=== PATIENT | female | born 1985 | race Caucasian/White ===

== ENCOUNTER 2024-09-22 07:49 | Inpatient (IN) ==
[2024-09-22] MEDS ORDERED: LIDOCAINE 1% LOCAL 20 ML VIAL INFIL PRN (07:59)
[2024-09-22] MEDS ORDERED: OXYTOCIN 30 UNITS/NSS 30 UNITS/500 ML BAG IV PRN (07:59)
[2024-09-22] MEDS ORDERED: ACETAMINOPHEN 325 MG TAB PO PRN (07:59)
[2024-09-22] MEDS ORDERED: CALCIUM CARBONATE 500 MG CHEWABLE TAB PO PRN (07:59)
--- NOTE | 2024-09-22 08:43 | History & Physical Report ---
Date of Service September 22, 2024 Assessment & Plan (1) 39 weeks gestation of : (2) Encounter for induction of labor: (3) Insulin controlled gestational diabetes mellitus (GDM) during : (4) Renal agenesis, , affecting care of mother, antepartum: Plan admit, iv, labs, fhts categ 1. will plan pit and arom when appropriate. check bsg now and q2hr in labor. Admission and Anticipated Discharge Date Admission Date: September 22, 2024 History of Present Illness Chief Complaint: planned induction Primary Care Provider: TIARA Humphrey 39yo at 39+wks eglynda presents to LD for planned induction for insulin requiring GDM. No rom, no vb. +FM. No ctx. PNC c/b 1. GDM on insulin 2. AMA 3. Left renal agenesis, Recommend f/u US to evaluate 4. 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 Allergies Allergy/AdvReac Type Severity Reaction Status Date / Time No Known Allergies Allergy Verified 09/22/24 08:27 Home Medications Medication Instructions Recorded Confirmed Type breast pump #1 ea 07/07/24 09/19/24 Rx acetone (urine) test (Ketone Urine #50 ea 08/04/24 09/19/24 Rx Test strips) blood sugar diagnostic (OneTouch #150 ea 08/04/24 09/19/24 Rx Verio test strips) blood-glucose meter (OneTouch #1 ea 08/04/24 09/19/24 Rx Verio Reflect Meter) lancets 33 gauge (OneTouch Delica #150 ea 08/04/24 09/19/24 Rx Plus Lancet) pen needle, diabetic 32 gauge x #50 ea 08/14/24 09/19/24 Rx 5/32" (BD Ultra-Fine Mansi Pen Needle) vits no.124-ferrous fum 1 tab PO DAILY 09/22/24 09/22/24 History 27 mg iron-folic acid 800 mcg tablet ( Vitamin) Patient History Medical History HPV (human papilloma virus) infection Chicken pox Spider veins Surgical History Hx of dilation and curettage [place] teeth extracted Family History Grandfather (Paternal) Diabetes Grandfather (Maternal) Myocardial infarction Mother No problems noted. 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 How many Children do You have: 0 Feels Safe at Home: Yes Childhood Exposure to Second-Hand Smoke: No Diet: regular caffeine: Yes (tea) Dental Care, Regularly: Yes Physical Activity Frequency: 5-6 Times per Week Seatbelt Use: always Sunscreen Use: Yes Review of Systems as per Subjective / HPI Physical Exam Constitutional: WD/WN, vitals as above Respiratory: normal respiratory effort, lungs clear to auscultation Cardiovascular: Rate/Rhythm: regular rate and regular rhythm Gastrointestinal (Abdomen): soft gravid nt efw 7-8# Musculoskeletal: no edema nontender calves Neurologic: grossly normal Psychiatric: A+Ox3, euthymic affect Genitourinary: Manual OB Exam: + cervical dilation 3 cm, + cervical effacement 50% and + station -2 OB Exam Monitor Tracing: + external FHT monitor used, + external uterine monitor used, + category I and + normal FHT variability Results & Data Vital Signs (Past 12 Hours) Vital Signs Pulse BP 09/22/24 08:06 98 H 114/69 Code Status & VTE Plan VTE Prophylaxis Plan VTE Prophylaxis will be ordered: No Coding Level of Care Code None Diagnoses 39 weeks gestation of Z3A.39 Encounter for induction of labor Z34.90 Insulin controlled gestational diabetes mellitus (GDM) during O24.414 Renal agenesis, , affecting care of mother, antepartum O35.EXX0
[2024-09-22 08:44] LABS: Hematocrit (blood only) 40.4 % (37.0-47.0); Hemoglobin 13.9 g/dl (12.0-16.0); Mean Corpuscular Hemoglobin 31.5 pg (25.0-34.0); Mean Corpuscular Hgb Conc 34.4 g/dL (32.0-36.0); Mean Corpuscular Volume 91.6 fL (80.0-100.0); Mean Platelet Volume 11.1 fL (9.4-12.4); Platelet Count 189 K/uL (130-400); RDW Coefficient of Variation 13.5 % (11.5-14.5); RDW Standard Deviation 45.5 fL (36.4-46.3); Red Blood Count 4.41 M/uL (4.20-5.40)
[2024-09-22] MEDS: SODIUM CHLORIDE 0.9% 1,000 ML IV SCH (09:00)
[2024-09-22] MEDS: OXYTOCIN 30 UNITS/NSS 30 UNITS/500 ML BAG IV PRN (09:12)
--- NOTE | 2024-09-22 15:53 | Labor Progress Brief Note ---
Date of Service September 22, 2024 Subjective Feeling mild cramping Assessment & Plan (1) 39 weeks gestation of : (2) Encounter for induction of labor: (3) Insulin controlled gestational diabetes mellitus (GDM) during : (4) Renal agenesis, , affecting care of mother, antepartum: Plan 39 yo at 39 3/7 wga presents for IOL for A2GDM VSS Fetus cat 1 Labor - pit at 12. Offered arom, reviewed risks and benefits w/ pt and her partner. She is concerned about arom and whether to do it now, or try to wait longer after more pitocin. Discussed usual timing of offering is when ctx appear consistent, does have good pattern but she doesn't feel much and cervix has had very small progression since this am so does not appear to be strong enough at this point. Discussed impact of arom, risk of pph with and without, also with and without use of pitocin, questions answered to the best of my ability. She would like to consider whether to arom and let me know A2GDM - q2-4, q1-2 in active GBS neg epidural prn Admission and Anticipated Discharge Date Admission Date: September 22, 2024 Physical Exam Genitourinary: Manual OB Exam: + cervical dilation (3-4), + cervical effacement 50% and + station -2 OB Exam Monitor Tracing: + external FHT monitor used, + external uterine monitor used (q3-4) and + category I (150/mod/+accel/-decel) Results & Data Vital Signs (Past 12 Hours) Vital Signs Temp Pulse Resp BP 09/22/24 12:47 80 09/22/24 12:47 118/70 09/22/24 10:06 89 09/22/24 10:06 112/70 09/22/24 09:18 98.8 F 16 09/22/24 08:06 98 H 114/69 Coding Level of Care Code None Diagnoses 39 weeks gestation of Z3A.39 Encounter for induction of labor Z34.90 Insulin controlled gestational diabetes mellitus (GDM) during O24.414 Renal agenesis, , affecting care of mother, antepartum O35.EXX0
--- NOTE | 2024-09-22 18:19 | Labor Progress Brief Note ---
Date of Service September 22, 2024 Subjective Ctx slightly worse Assessment & Plan (1) 39 weeks gestation of : (2) Encounter for induction of labor: (3) Insulin controlled gestational diabetes mellitus (GDM) during : (4) Renal agenesis, , affecting care of mother, antepartum: Plan 39 yo at 39 3/7 wga presents for IOL for A2GDM VSS Fetus cat 1 Labor - pit at 16, SVE unchanged. She would prefer to wait a little longer as she feels that ctx are worsening and wants to see if they cause change. She would like to discuss w/ partner about how she would like to proceed A2GDM - q2-4, q1-2 in active GBS neg epidural prn Admission and Anticipated Discharge Date Admission Date: September 22, 2024 Physical Exam Genitourinary: Manual OB Exam: + cervical dilation (3-4), + cervical effacement 50% and + station -2 OB Exam Monitor Tracing: + external FHT monitor used, + external uterine monitor used (q3-4) and + category I (145/mod/+accel/-decel) Results & Data Vital Signs (Past 12 Hours) Vital Signs Temp Pulse Resp BP 09/22/24 18:03 16 09/22/24 18:03 98.6 F 16 09/22/24 18:03 78 09/22/24 18:03 124/79 09/22/24 16:01 88 09/22/24 16:01 121/68 09/22/24 12:47 80 09/22/24 12:47 118/70 09/22/24 10:06 89 09/22/24 10:06 112/70 09/22/24 09:18 98.8 F 16 09/22/24 08:06 98 H 114/69 Coding Level of Care Code None Diagnoses 39 weeks gestation of Z3A.39 Encounter for induction of labor Z34.90 Insulin controlled gestational diabetes mellitus (GDM) during O24.414 Renal agenesis, , affecting care of mother, antepartum O35.EXX0
--- NOTE | 2024-09-22 21:23 | Labor Progress Brief Note ---
Date of Service September 22, 2024 Subjective Ctx unchanged from last check Assessment & Plan (1) 39 weeks gestation of : (2) Encounter for induction of labor: (3) Insulin controlled gestational diabetes mellitus (GDM) during : (4) Renal agenesis, , affecting care of mother, antepartum: Plan 39 yo at 39 3/7 wga presents for IOL for A2GDM VSS Fetus cat 1 Labor - pit at 20, sve unchanged. Discussed arom to help with progress as has not made change since I took over. They inquire about next steps if arom performed or not, what next steps available are. Discussed limited additional options at this point other than arom, continued pit to a max, reset. Discussed if arom, expected progress and intervention if indicated. Discussed these are all possibilities as it is impossible to know how her body will respond though. They requested time to discuss b/w themselves, requested stopping pit to shower and then would be agreeable to arom and pit restart. Discussed once that occurs, would not recommend additional showering. Discussed will need to monitor until pit is expected ti be out of her system before showering A2GDM - q2-4, q1-2 in active GBS neg epidural prn Admission and Anticipated Discharge Date Admission Date: September 22, 2024 Physical Exam Genitourinary: Manual OB Exam: + cervical dilation (3-4), + cervical effacement 50% and + station -2 OB Exam Monitor Tracing: + external FHT monitor used, + external uterine monitor used (q3-4) and + category I (135/mod/+accel/-decel) Results & Data Vital Signs (Past 12 Hours) Vital Signs Temp Pulse Resp BP 09/22/24 19:30 18 09/22/24 19:30 98.8 F 18 09/22/24 19:13 83 09/22/24 19:13 109/60 09/22/24 18:30 16 09/22/24 18:30 16 09/22/24 18:03 16 09/22/24 18:03 98.6 F 16 09/22/24 18:03 78 09/22/24 18:03 124/79 09/22/24 16:01 88 09/22/24 16:01 121/68 09/22/24 12:47 80 09/22/24 12:47 118/70 09/22/24 10:06 89 09/22/24 10:06 112 Coding Level of Care Code None Diagnoses 39 weeks gestation of Z3A.39 Encounter for induction of labor Z34.90 Insulin controlled gestational diabetes mellitus (GDM) during O24.414 Renal agenesis, , affecting care of mother, antepartum O35.EXX0
--- NOTE | 2024-09-23 01:14 | Labor Progress Brief Note ---
Date of Service September 23, 2024 Subjective pit restarted Assessment & Plan (1) 39 weeks gestation of : (2) Encounter for induction of labor: (3) Insulin controlled gestational diabetes mellitus (GDM) during : (4) Renal agenesis, , affecting care of mother, antepartum: Plan 39 yo at 39 3/7 wga presents for IOL for A2GDM VSS Fetus cat 1 Labor - pit restarted, currently at 4. Reviewed arom and pt agreeable, s/p arom. Continue pitocin A2GDM - q2-4, q1-2 in active GBS neg epidural prn Admission and Anticipated Discharge Date Admission Date: September 22, 2024 Physical Exam Genitourinary: Manual OB Exam: + cervical dilation (3-4), + cervical effacement 50%, + station -2 and + amniotic fluid (arom clear) OB Exam Monitor Tracing: + external FHT monitor used, + external uterine monitor used (q 6) and + category I (135/mod/+accel/-decel) Results & Data Vital Signs (Past 12 Hours) Vital Signs Temp Pulse Resp BP 09/23/24 01:00 18 09/23/24 01:00 98.6 F 18 09/22/24 23:21 94 H 09/22/24 23:21 117/73 09/22/24 19:30 18 09/22/24 19:30 98.8 F 18 09/22/24 19:13 83 09/22/24 19:13 109/60 09/22/24 18:30 16 09/22/24 18:30 16 09/22/24 18:03 16 09/22/24 18:03 98.6 F 16 09/22/24 18:03 78 09/22/24 18:03 124/79 09/22/24 16:01 88 09/22/24 16:01 121/68 Coding Level of Care Code None Diagnoses 39 weeks gestation of Z3A.39 Encounter for induction of labor Z34.90 Insulin controlled gestational diabetes mellitus (GDM) during O24.414 Renal agenesis, , affecting care of mother, antepartum O35.EXX0
[2024-09-23] MEDS ORDERED: ACETAMINOPHEN 500 MG TAB PO SCH (06:00)
--- NOTE | 2024-09-23 06:49 | Labor Progress Brief Note ---
Date of Service September 23, 2024 Subjective more painful, considering epidural Assessment & Plan (1) 39 weeks gestation of : (2) Encounter for induction of labor: (3) Insulin controlled gestational diabetes mellitus (GDM) during : (4) Renal agenesis, , affecting care of mother, antepartum: Plan 39 yo at 39 3/7 wga presents for IOL for A2GDM VSS Fetus cat 1 Labor - progress noted in effacement and station, she is considering epidural but would like to talk to anesthesia. Pit now at 10 A2GDM - q2-4, q1-2 in active GBS neg epidural prn Admission and Anticipated Discharge Date Admission Date: September 22, 2024 Physical Exam Genitourinary: Manual OB Exam: + cervical dilation 4 cm, + cervical effacement 70% and + station -1 OB Exam Monitor Tracing: + external FHT monitor used, + external uterine monitor used and + category I Results & Data Vital Signs (Past 12 Hours) Vital Signs Temp Pulse Resp BP 09/23/24 03:50 73 117/57 L 09/23/24 03:48 18 09/23/24 03:48 98.2 F 18 09/23/24 02:00 98.2 F 09/23/24 01:00 18 09/23/24 01:00 98.6 F 18 09/22/24 23:21 94 H 09/22/24 23:21 117/73 09/22/24 19:30 18 09/22/24 19:30 98.8 F 18 09/22/24 19:13 83 09/22/24 19:13 109/60 Coding Level of Care Code None Diagnoses 39 weeks gestation of Z3A.39 Encounter for induction of labor Z34.90 Insulin controlled gestational diabetes mellitus (GDM) during O24.414 Renal agenesis, , affecting care of mother, antepartum O35.EXX0
[2024-09-23] MEDS ORDERED: SODIUM CHLORIDE 0.9% PF INJ 10 ML VIAL EPI PRN (07:42)
[2024-09-23] MEDS ORDERED: fentaNYL citrate PF 100 MCG/2 ML VIAL EPI PRN (07:42)
[2024-09-23] MEDS ORDERED: ROPIVACAINE 0.5% PF 5 MG/ML 20 ML VIAL EPI PRN (07:42)
[2024-09-23] MEDS ORDERED: NALOXONE HCL 0.4 MG/1 ML VIAL/CARP IV PRN ×2 (07:42→23:06)
[2024-09-23] MEDS ORDERED: NALOXONE HCL 1 MG in SODIUM CHLORIDE 0.9% 1,000 ML IV PRN ×2 (07:42→23:06)
[2024-09-23] MEDS ORDERED: NALBUPHINE HCL INJ 10 MG/ML AMP IV PRN ×2 (07:42→23:06)
[2024-09-23] MEDS ORDERED: LIDOCAINE 2% MPF LOCAL 5 ML VIAL EPI PRN (07:42)
[2024-09-23] MEDS ORDERED: BUPIVACAINE 0.25% PF 30 ML VIAL EPI PRN (07:42)
[2024-09-23] MEDS ORDERED: diphenhydrAMINE 50 MG/ML VIAL IV PRN ×2 (07:42→23:06)
[2024-09-23] MEDS ORDERED: ePHEDrine sulfate 50 MG/ML AMP IV PRN ×2 (07:42→23:06)
--- NOTE | 2024-09-23 07:42 | Anesthesiology Consultation ---
Date of Service September 23, 2024 Assessment & Plan (1) Encounter for pre-operative examination: Chart Review Chart Review: Patient NOT seen in Pre Admission Testing and Acceptable Risk for Labor Epidural Consults Requested none History Height/Weight Height: 5 ft 1 in Weight: 81.647 kg Allergies Allergy/AdvReac Type Severity Reaction Status Date / Time No Known Allergies Allergy Verified 09/22/24 08:27 Medications Home Medications Medication Instructions Recorded Confirmed Last Taken breast pump #1 ea 07/07/24 09/19/24 Unknown acetone (urine) test (Ketone Urine #50 ea 08/04/24 09/19/24 Unknown Test strips) blood sugar diagnostic (OneTouch #150 ea 08/04/24 09/19/24 Unknown Verio test strips) blood-glucose meter (OneTouch #1 ea 08/04/24 09/19/24 Unknown Verio Reflect Meter) lancets 33 gauge (OneTouch Delica #150 ea 08/04/24 09/19/24 Unknown Plus Lancet) pen needle, diabetic 32 gauge x #50 ea 08/14/24 09/19/24 Unknown 32" (BD Ultra-Fine Mansi Pen Needle) vits no.124-ferrous fum 1 tab PO DAILY 09/22/24 09/22/24 09/22/24 27 mg iron-folic acid 800 mcg tablet ( Vitamin) Active Medications Generic Name Dose Route Start Last Admin Trade Name Freq PRN Reason Stop Dose Admin Oxytocin 30 units in 500 mls @ 10 mls/hr 09/22/24 08:07 09/23/24 05:45 Pitocin 30 Units/Nss IV 09/24/24 08:06 0.6 units/hr .Q24H PRN 10 mls/hr Labor Induction/Augmentation Titration Protocol 0.6 UNITS/HR Sodium Chloride 1,000 mls @ 50 mls/hr 09/22/24 10:00 09/23/24 02:55 Nss IV 09/23/24 09:59 50 mls/hr .Q20H HOMERO Administration Past Medical History Medical History HPV (human papilloma virus) infection Chicken pox Spider veins Past Family History Family History Grandfather (Paternal) Diabetes Grandfather (Maternal) Myocardial infarction Mother No problems noted. Father Hypertension Denies family history of Ovarian cancer Prostate cancer Breast cancer Colorectal cancer Past Surgical History Surgical History Hx of dilation and curettage [place] teeth extracted Social History Smoking Status: Never smoker Hx Alcohol Use: No Alcohol type: beer, wine and hard liquor Hx Substance Use: No substance use type: does not use Physical Exam Vital Signs Last Vital Signs Temp 98.2 F 09/23/24 03:48 Pulse 94 H 09/23/24 07:24 Resp 18 09/23/24 03:48 BP 119/66 09/23/24 07:24 Testing Laboratory Results 09/22/24 08:25 09/23/24 09/23/24 09/23/24 07:21 05:11 01:46 POC Glucose 111 H 107 H 124 H 09/22/24 09/22/24 23:30 20:42 POC Glucose 107 H 93
[2024-09-23] MEDS: BUPIVACAINE 0.25% PF 30 ML VIAL ONE (08:17)
[2024-09-23] MEDS: LIDOCAINE 2%/EPINEPHRINE 1:200,000 20 ML PF ONE (08:17)
[2024-09-23] MEDS: fentANYL 2 MCG/ML BUPIVacaine 0.125%-NSS 100ML BAG ONE (08:17)
[2024-09-23] MEDS: SODIUM CHLORIDE 0.9% PF INJ 10 ML VIAL ONE (08:18)
[2024-09-23] MEDS: fentaNYL citrate PF 100 MCG/2 ML VIAL ONE (08:18)
[2024-09-23] MEDS: SODIUM CHLORIDE 0.9% PF INJ 10 ML VIAL EPI STA (08:59)
[2024-09-23] MEDS: BUPIVACAINE 0.25% PF 30 ML VIAL EPI STA (09:00)
[2024-09-23] MEDS: fentaNYL citrate PF 100 MCG/2 ML VIAL EPI STA (09:00)
[2024-09-23] MEDS: LIDOCAINE 2%/EPINEPHRINE 1:200,000 20 ML PF EPI STA (09:01)
--- NOTE | 2024-09-23 11:19 | Labor Progress Brief Note ---
Date of Service September 23, 2024 Subjective comfortable, nurse in room with patient monitoring strip as central monitoring down Assessment & Plan (1) Encounter for induction of labor: (2) 39 weeks gestation of : (3) Insulin controlled gestational diabetes mellitus (GDM) during : Plan iupc placed in order to better monitor contractions given recent changes in the strip that have resolved with position change. Will hold pitocin at 18 for now and evaluate mvus. Fetus now category one. Continue to monitor closely. arom x 10 hours. afebrile. Admission and Anticipated Discharge Date Admission Date: September 22, 2024 Physical Exam Physical Exam: cx--4/100/-2, no change from my exam this am toco--q2-3min, pit at 18 efm--category one strip for the most part. Did have a short area of the strip that was more flat with min variability and ? late decels. Patient postion changed and now 140s with mod variability, accels present , no decels iupc placed. Results & Data Vital Signs (Past 12 Hours) Vital Signs Temp Pulse Resp BP Pulse Ox 09/23/24 10:37 87 20 115/63 98 09/23/24 10:21 96 H 104/57 L 96 09/23/24 10:10 107 H 98/53 L 96 09/23/24 10:00 16 09/23/24 09:54 88 100/54 L 96 09/23/24 09:40 99 H 101/57 L 98 09/23/24 09:30 18 09/23/24 09:09 97 H 110/56 L 96 09/23/24 09:00 37.1 C 16 09/23/24 08:54 88 100/54 L 96 09/23/24 08:50 91 H 98 09/23/24 08:45 93 H 97 09/23/24 08:40 109 H 98 09/23/24 08:39 108 H 124/58 L 09/23/24 08:36 107 H 118/69 09/23/24 08:35 106 H 98 09/23/24 08:31 98 H 127/64 09/23/24 08:30 18 09/23/24 08:30 98 H 99 09/23/24 08:25 99 H 98 09/23/24 08:24 96 H 128/59 L 09/23/24 08:22 99 H 128/83 09/23/24 08:20 100 H 98 09/23/24 08:19 99 H 123/57 L 09/23/24 08:17 104 H 123/58 L 09/23/24 08:15 98 H 120/59 L 99 09/23/24 08:13 103 H 127/61 09/23/24 08:11 108 H 131/62 09/23/24 08:10 113 H 100 09/23/24 08:09 100 H 132/68 09/23/24 08:07 89 128/71 09/23/24 08:05 94 H 100 09/23/24 08:00 95 H 99 09/23/24 07:59 95 H 126/74 09/23/24 07:55 95 H 97 09/23/24 07:30 20 09/23/24 07:30 37.5 C 20 09/23/24 07:24 94 H 119/66 09/23/24 03:50 73 117/57 L 09/23/24 03:48 18 09/23/24 03:48 36.8 C 18 09/23/24 02:00 36.8 C 09/23/24 01:00 18 09/23/24 01:00 37.0 C 18 09/22/24 23:21 94 H 09/22/24 23:21 117/73 Coding Level of Care Code None Diagnoses Encounter for induction of labor Z34.90 39 weeks gestation of Z3A.39 Insulin controlled gestational diabetes mellitus (GDM) during O24.414
--- NOTE | 2024-09-23 12:00 | Labor Progress Brief Note ---
Date of Service September 23, 2024 Subjective comfortable Assessment & Plan (1) Encounter for induction of labor: Plan continue current management. Will need to go up on the pitocin. Fetus category one for the most part. Admission and Anticipated Discharge Date Admission Date: September 22, 2024 Physical Exam 2 Physical Exam: toco--q3min, pit at 18, mvus not adequate efm--130s with mod variability, accels present, rare variable Results & Data Vital Signs (Past 12 Hours) Vital Signs Temp Pulse Resp BP Pulse Ox 09/23/24 11:55 92 H 99 09/23/24 11:51 83 107/59 L 09/23/24 11:50 87 99 09/23/24 11:45 94 H 98 09/23/24 10:37 87 20 115/63 98 09/23/24 10:21 96 H 104/57 L 96 09/23/24 10:10 107 H 98/53 L 96 09/23/24 10:00 16 09/23/24 09:54 88 100/54 L 96 09/23/24 09:40 99 H 101/57 L 98 09/23/24 09:30 18 09/23/24 09:09 97 H 110/56 L 96 09/23/24 09:00 37.1 C 16 09/23/24 08:54 88 100/54 L 96 09/23/24 08:50 91 H 98 09/23/24 08:45 93 H 97 09/23/24 08:40 109 H 98 09/23/24 08:39 108 H 124/58 L 09/23/24 08:36 107 H 118/69 09/23/24 08:35 106 H 98 09/23/24 08:31 98 H 127/64 09/23/24 08:30 18 09/23/24 08:30 98 H 99 09/23/24 08:25 99 H 98 09/23/24 08:24 96 H 128/59 L 09/23/24 08:22 99 H 128/83 09/23/24 08:20 100 H 98 09/23/24 08:19 99 H 123/57 L 09/23/24 08:17 104 H 123/58 L 09/23/24 08:15 98 H 120/59 L 99 09/23/24 08:13 103 H 127/61 09/23/24 08:11 108 H 131/62 09/23/24 08:10 113 H 100 09/23/24 08:09 100 H 132/68 09/23/24 08:07 89 128/71 09/23/24 08:05 94 H 100 09/23/24 08:00 95 H 99 09/23/24 07:59 95 H 126/74 09/23/24 07:55 95 H 97 09/23/24 07:30 20 09/23/24 07:30 37.5 C 20 09/23/24 07:24 94 H 119/66 09/23/24 03:50 73 117/57 L 09/23/24 03:48 18 09/23/24 03:48 36.8 C 18 09/23/24 02:00 36.8 C 09/23/24 01:00 18 09/23/24 01:00 37.0 C 18 Coding Level of Care Code None Diagnoses Encounter for induction of labor Z34.90
[2024-09-23] MEDS: SODIUM CHLORIDE 0.9% 1,000 ML IV SCH (13:45)
--- NOTE | 2024-09-23 14:27 | Labor Progress Brief Note ---
Date of Service September 23, 2024 Subjective comfortable, tired Assessment & Plan (1) Encounter for induction of labor: Plan advised to place fse so we don't have to keep chasing the baby around when making position changes and have directly from the baby. Getting better contractions but still very dysfunctional pattern. Suspect we will get to 30 and still not be adequate 1. Can decide at that time to proceed with c/s 2. Allow to stay at 30 and see if can get to adequate pattern. 3. Half pit and go up again. I cannot explain why we cannot get her uterus to cooperate and overall baby category one and reassuring throughout, although, a very occasional late appearing decel that resolves immediately with position change. We may at some point have no other choice but c/s. They express understanding of the overall situation. Admission and Anticipated Discharge Date Admission Date: September 22, 2024 Physical Exam Physical Exam: cx--unchanged toco--q2-4 with runs between, dysfunctional pattern, pit at 24 fse--130s wtih mod variability, scalp stim with placeing fse. overall category one. occasional variable and potential late but rare and resolve immediatly with position change Results & Data Vital Signs (Past 12 Hours) Vital Signs Temp Pulse Resp BP Pulse Ox 09/23/24 14:21 103 H 124/60 09/23/24 14:20 108 H 98 09/23/24 14:15 98 H 98 09/23/24 14:10 99 H 99 09/23/24 14:06 96 H 126/63 09/23/24 14:05 98 H 99 09/23/24 14:00 98 H 99 09/23/24 13:55 101 H 98 09/23/24 13:51 100 H 117/71 09/23/24 13:50 98 H 99 09/23/24 13:45 106 H 99 09/23/24 13:40 99 H 99 09/23/24 13:36 90 121/65 09/23/24 13:35 94 H 98 09/23/24 13:30 95 H 98 09/23/24 13:25 96 H 100 09/23/24 13:21 93 H 115/55 L 09/23/24 13:20 92 H 99 09/23/24 13:17 96 H 112/69 09/23/24 13:15 96 H 99 09/23/24 13:10 96 H 99 09/23/24 13:05 94 H 99 09/23/24 13:00 37.1 C 89 16 100 09/23/24 12:55 91 H 99 09/23/24 12:53 85 118/63 09/23/24 12:50 98 H 98 09/23/24 12:45 103 H 98 09/23/24 12:40 106 H 99 09/23/24 12:36 98 H 100/53 L 09/23/24 12:35 99 H 100 09/23/24 12:30 101 H 100 09/23/24 12:29 101 H 113/53 L 09/23/24 12:25 90 99 09/23/24 12:20 95 H 98 09/23/24 12:15 92 H 98 09/23/24 12:10 91 H 98 09/23/24 12:06 85 108/74 09/23/24 12:05 98 H 97 09/23/24 12:00 20 09/23/24 12:00 92 H 97 09/23/24 11:55 92 H 99 09/23/24 11:51 83 107/59 L 09/23/24 11:50 87 99 09/23/24 11:45 94 H 98 09/23/24 11:37 97 H 116/58 L 97 09/23/24 11:30 18 09/23/24 11:21 89 117/60 98 09/23/24 11:10 37.1 C 09/23/24 11:07 88 116/59 L 99 09/23/24 11:00 20 09/23/24 10:53 83 121/62 99 09/23/24 10:37 87 20 115/63 98 09/23/24 10:30 16 09/23/24 10:21 96 H 104/57 L 96 09/23/24 10:10 107 H 98/53 L 96 09/23/24 10:00 16 09/23/24 09:54 88 100/54 L 96 09/23/24 09:40 99 H 101/57 L 98 09/23/24 09:30 18 09/23/24 09:09 97 H 110/56 L 96 09/23/24 09:00 37.1 C 16 09/23/24 08:54 88 100/54 L 96 09/23/24 08:50 91 H 98 09/23/24 08:45 93 H 97 09/23/24 08:40 109 H 98 09/23/24 08:39 108 H 124/58 L 09/23/24 08:36 107 H 118/69 09/23/24 08:35 106 H 98 09/23/24 08:31 98 H 127/64 09/23/24 08:30 18 09/23/24 08:30 98 H 99 09/23/24 08:25 99 H 98 09/23/24 08:24 96 H 128/59 L 09/23/24 08:22 99 H 128/83 09/23/24 08:20 100 H 98 09/23/24 08:19 99 H 123/57 L 09/23/24 08:17 104 H 123/58 L 09/23/24 08:15 98 H 120/59 L 99 09/23/24 08:13 103 H 127/61 09/23/24 08:11 108 H 131/62 09/23/24 08:10 113 H 100 09/23/24 08:09 100 H 132/68 09/23/24 08:07 89 128/71 09/23/24 08:05 94 H 100 09/23/24 08:00 95 H 99 09/23/24 07:59 95 H 126/74 09/23/24 07:55 95 H 97 09/23/24 07:30 20 09/23/24 07:30 37.5 C 20 09/23/24 07:24 94 H 119/66 09/23/24 03:50 73 117/57 L 09/23/24 03:48 18 09/23/24 03:48 36.8 C 18 Coding Level of Care Code None Diagnoses Encounter for induction of labor Z34.90
[2024-09-23] MEDS: fentANYL 2 MCG/ML BUPIVacaine 0.125%-NSS 100ML BAG EPI PRN (16:48)
--- NOTE | 2024-09-23 17:53 | Labor Progress Brief Note ---
Date of Service September 23, 2024 Subjective comfortable although noting some contractions Assessment & Plan (1) Encounter for induction of labor: Plan NO change for 24hours. arom for 16.5. no s/s of infection. inability to get adequate contractions pattern, slight swelling to cervix. All of these signs are making me concerned that we are not going to achieve a vaginal delivery. Discussed could do c/s now. Continue at pit of 30 for more time (it's been two hours). Half the pit and go back up to 30 and see if we get a better pattern. There is no reason that we have to do a c/s now. Fetus is overall category one and reassuring. Discussed risks of continuing induction and risks of c/s. Patient would like to do the halving. Will do now. Discussed the c/s procedure with them. Admission and Anticipated Discharge Date Admission Date: September 22, 2024 Physical Exam Physical Exam: cx--/-2, small amount of swelling toco--pit at 30 for 2 hours. still dysfunctional pattern, q 2-5 min with runs efm--140s with mod variability, accels present, +scalp stim. rare variable Results & Data Vital Signs (Past 12 Hours) Vital Signs Temp Pulse Resp BP Pulse Ox 09/23/24 17:45 107 H 96 09/23/24 17:40 113 H 97 09/23/24 17:36 109 H 126/76 09/23/24 17:35 107 H 97 09/23/24 17:30 104 H 97 09/23/24 17:25 109 H 99 09/23/24 17:21 108 H 110/58 L 09/23/24 17:20 103 H 96 09/23/24 17:15 37.4 C 100 H 16 96 09/23/24 17:10 103 H 96 09/23/24 17:06 105 H 101/56 L 09/23/24 17:05 102 H 97 09/23/24 17:00 102 H 16 96 09/23/24 16:55 101 H 97 09/23/24 16:51 100 H 101/50 L 09/23/24 16:50 100 H 97 09/23/24 16:45 105 H 98 09/23/24 16:41 102 H 104/53 L 09/23/24 16:40 107 H 99 09/23/24 16:35 106 H 99 09/23/24 16:30 105 H 16 99 09/23/24 16:25 107 H 99 09/23/24 16:22 100 H 117/58 L 09/23/24 16:20 108 H 98 09/23/24 16:15 104 H 97 09/23/24 16:10 102 H 97 09/23/24 16:08 98 H 119/62 09/23/24 16:05 99 H 98 09/23/24 16:00 103 H 16 97 09/23/24 15:55 104 H 99 09/23/24 15:51 106 H 125/64 09/23/24 15:50 104 H 99 09/23/24 15:45 95 H 99 09/23/24 15:40 102 H 100 09/23/24 15:37 106 H 123/66 09/23/24 15:35 108 H 98 09/23/24 15:30 18 09/23/24 15:30 18 09/23/24 15:30 106 H 20 99 09/23/24 15:25 112 H 99 09/23/24 15:20 120 H 97 09/23/24 15:15 121 H 98 09/23/24 15:10 115 H 99 09/23/24 15:05 116 H 99 09/23/24 15:01 18 09/23/24 15:01 37.0 C 18 09/23/24 15:00 114 H 99 09/23/24 14:58 115 H 104/67 09/23/24 14:55 108 H 99 09/23/24 14:50 104 H 98 09/23/24 14:45 99 H 97 09/23/24 14:40 101 H 98 09/23/24 14:36 96 H 115/69 09/23/24 14:35 99 H 98 09/23/24 14:31 20 09/23/24 14:31 20 09/23/24 14:30 102 H 98 09/23/24 14:25 101 H 98 09/23/24 14:21 103 H 124/60 09/23/24 14:20 108 H 98 09/23/24 14:15 98 H 98 09/23/24 14:10 99 H 99 09/23/24 14:06 96 H 126/63 09/23/24 14:05 98 H 99 09/23/24 14:01 18 09/23/24 14:01 18 09/23/24 14:00 98 H 99 09/23/24 13:55 101 H 98 09/23/24 13:51 100 H 117/71 09/23/24 13:50 98 H 99 09/23/24 13:45 106 H 99 09/23/24 13:40 99 H 99 09/23/24 13:36 90 121/65 09/23/24 13:35 94 H 98 09/23/24 13:31 16 09/23/24 13:31 16 09/23/24 13:30 95 H 98 09/23/24 13:25 96 H 100 09/23/24 13:21 93 H 115/55 L 09/23/24 13:20 92 H 99 09/23/24 13:17 96 H 112/69 09/23/24 13:15 96 H 99 09/23/24 13:10 96 H 99 09/23/24 13:05 94 H 99 09/23/24 13:00 37.1 C 89 16 100 09/23/24 12:55 91 H 99 09/23/24 12:53 85 118/63 09/23/24 12:50 98 H 98 09/23/24 12:45 103 H 98 09/23/24 12:40 106 H 99 09/23/24 12:36 98 H 100/53 L 09/23/24 12:35 99 H 100 09/23/24 12:30 101 H 100 09/23/24 12:29 101 H 113/53 L 09/23/24 12:25 90 99 09/23/24 12:20 95 H 98 09/23/24 12:15 92 H 98 09/23/24 12:10 91 H 98 09/23/24 12:06 85 108/74 09/23/24 12:05 98 H 97 09/23/24 12:00 20 09/23/24 12:00 92 H 97 09/23/24 11:55 92 H 99 09/23/24 11:51 83 107/59 L 09/23/24 11:50 87 99 09/23/24 11:45 94 H 98 09/23/24 11:37 97 H 116/58 L 97 09/23/24 11:30 18 09/23/24 11:21 89 117/60 98 09/23/24 11:10 37.1 C 09/23/24 11:07 88 116/59 L 99 09/23/24 11:00 20 09/23/24 10:53 83 121/62 99 09/23/24 10:37 87 20 115/63 98 09/23/24 10:30 16 09/23/24 10:21 96 H 104/57 L 96 09/23/24 10:10 107 H 98/53 L 96 09/23/24 10:00 16 09/23/24 09:54 88 100/54 L 96 09/23/24 09:40 99 H 101/57 L 98 09/23/24 09:30 18 09/23/24 09:09 97 H 110/56 L 96 09/23/24 09:00 37.1 C 16 09/23/24 08:54 88 100/54 L 96 09/23/24 08:50 91 H 98 09/23/24 08:45 93 H 97 09/23/24 08:40 109 H 98 09/23/24 08:39 108 H 124/58 L 09/23/24 08:36 107 H 118/69 09/23/24 08:35 106 H 98 09/23/24 08:31 98 H 127/64 09/23/24 08:30 18 09/23/24 08:30 98 H 99 09/23/24 08:25 99 H 98 09/23/24 08:24 96 H 128/59 L 09/23/24 08:22 99 H 128/83 09/23/24 08:20 100 H 98 09/23/24 08:19 99 H 123/57 L 09/23/24 08:17 104 H 123/58 L 09/23/24 08:15 98 H 120/59 L 99 09/23/24 08:13 103 H 127/61 09/23/24 08:11 108 H 131/62 09/23/24 08:10 113 H 100 09/23/24 08:09 100 H 132/68 09/23/24 08:07 89 128/71 09/23/24 08:05 94 H 100 09/23/24 08:00 95 H 99 09/23/24 07:59 95 H 126/74 09/23/24 07:55 95 H 97 09/23/24 07:30 20 09/23/24 07:30 37.5 C 20 09/23/24 07:24 94 H 119/66 Coding Level of Care Code None Diagnoses Encounter for induction of labor Z34.90
[2024-09-23] MEDS: CALCIUM CARBONATE 500 MG CHEWABLE TAB PO PRN (18:50)
--- NOTE | 2024-09-23 21:49 | Labor Progress Brief Note ---
Date of Service September 23, 2024 Subjective comfortable Assessment & Plan (1) Encounter for induction of labor: Plan FTP. No change since 5pm yesterday. fetus category one. They are ready to move onto c/s. Consent reviewed and sigend. Admission and Anticipated Discharge Date Admission Date: September 22, 2024 Physical Exam Physical Exam: cx--/-2 toco--continued dysfunctional pattern, q2-6, pit at 29 efm--145 with mod variability, small accels, no decels Results & Data Vital Signs (Past 12 Hours) Vital Signs Temp Pulse Resp BP Pulse Ox 09/23/24 21:42 112 H 94 09/23/24 21:40 119 H 98 09/23/24 21:36 110 H 120/67 09/23/24 21:35 109 H 97 09/23/24 21:30 110 H 96 09/23/24 21:25 110 H 97 09/23/24 21:21 37.4 C 103 H 121/60 09/23/24 21:20 106 H 94 09/23/24 21:19 104 H 94 09/23/24 21:15 101 H 94 09/23/24 21:12 105 H 94 09/23/24 21:10 101 H 95 09/23/24 21:06 99 H 118/58 L 94 09/23/24 21:05 102 H 95 09/23/24 21:00 100 H 95 09/23/24 20:55 110 H 96 09/23/24 20:51 101 H 118/63 09/23/24 20:50 104 H 95 09/23/24 20:45 106 H 96 09/23/24 20:40 107 H 96 09/23/24 20:37 100 H 120/68 09/23/24 20:35 101 H 97 09/23/24 20:30 102 H 98 09/23/24 20:25 111 H 99 09/23/24 20:21 109 H 113/57 L 09/23/24 20:20 107 H 98 09/23/24 20:15 110 H 98 09/23/24 20:10 105 H 99 09/23/24 20:06 107 H 108/58 L 09/23/24 20:05 107 H 99 09/23/24 20:00 109 H 99 09/23/24 19:55 109 H 99 09/23/24 19:50 113 H 98 09/23/24 19:45 122 H 99 09/23/24 19:40 114 H 97 09/23/24 19:35 109 H 99 09/23/24 19:30 99 H 99 09/23/24 19:25 104 H 98 09/23/24 19:21 101 H 132/74 09/23/24 19:20 109 H 98 09/23/24 19:15 105 H 98 09/23/24 19:10 37.0 C 20 09/23/24 19:10 104 H 98 09/23/24 19:07 103 H 131/72 09/23/24 19:05 109 H 98 09/23/24 19:00 104 H 18 98 09/23/24 18:55 105 H 98 09/23/24 18:51 112 H 122/57 L 09/23/24 18:50 106 H 99 09/23/24 18:45 103 H 97 09/23/24 18:40 107 H 99 09/23/24 18:37 99 H 124/69 09/23/24 18:35 101 H 99 09/23/24 18:30 100 H 18 98 09/23/24 18:25 108 H 99 09/23/24 18:21 112 H 117/67 09/23/24 18:20 111 H 99 09/23/24 18:15 111 H 99 09/23/24 18:10 116 H 98 09/23/24 18:07 102 H 125/75 09/23/24 18:05 108 H 97 09/23/24 18:00 101 H 18 97 09/23/24 17:55 106 H 97 09/23/24 17:52 102 H 127/69 09/23/24 17:50 110 H 97 09/23/24 17:45 107 H 96 09/23/24 17:40 113 H 97 09/23/24 17:36 109 H 126/76 09/23/24 17:35 107 H 97 09/23/24 17:30 104 H 18 97 09/23/24 17:25 109 H 99 09/23/24 17:21 108 H 110/58 L 09/23/24 17:20 103 H 96 09/23/24 17:15 37.4 C 100 H 16 96 09/23/24 17:10 103 H 96 09/23/24 17:06 105 H 101/56 L 09/23/24 17:05 102 H 97 09/23/24 17:00 102 H 16 96 09/23/24 16:55 101 H 97 09/23/24 16:51 100 H 101/50 L 09/23/24 16:50 100 H 97 09/23/24 16:45 105 H 98 09/23/24 16:41 102 H 104/53 L 09/23/24 16:40 107 H 99 09/23/24 16:35 106 H 99 09/23/24 16:30 105 H 16 99 09/23/24 16:25 107 H 99 09/23/24 16:22 100 H 117/58 L 09/23/24 16:20 108 H 98 09/23/24 16:15 104 H 97 09/23/24 16:10 102 H 97 09/23/24 16:08 98 H 119/62 09/23/24 16:05 99 H 98 09/23/24 16:00 103 H 16 97 09/23/24 15:55 104 H 99 09/23/24 15:51 106 H 125/64 09/23/24 15:50 104 H 99 09/23/24 15:45 95 H 99 09/23/24 15:40 102 H 100 09/23/24 15:37 106 H 123/66 09/23/24 15:35 108 H 98 09/23/24 15:30 18 09/23/24 15:30 18 09/23/24 15:30 106 H 20 99 09/23/24 15:25 112 H 99 09/23/24 15:20 120 H 97 09/23/24 15:15 121 H 98 09/23/24 15:10 115 H 99 09/23/24 15:05 116 H 99 09/23/24 15:01 18 09/23/24 15:01 37.0 C 18 09/23/24 15:00 114 H 99 09/23/24 14:58 115 H 104/67 09/23/24 14:55 108 H 99 09/23/24 14:50 104 H 98 09/23/24 14:45 99 H 97 09/23/24 14:40 101 H 98 09/23/24 14:36 96 H 115/69 09/23/24 14:35 99 H 98 09/23/24 14:31 20 09/23/24 14:31 20 09/23/24 14:30 102 H 98 09/23/24 14:25 101 H 98 09/23/24 14:21 103 H 124/60 09/23/24 14:20 108 H 98 09/23/24 14:15 98 H 98 09/23/24 14:10 99 H 99 09/23/24 14:06 96 H 126/63 09/23/24 14:05 98 H 99 09/23/24 14:01 18 09/23/24 14:01 18 09/23/24 14:00 98 H 99 09/23/24 13:55 101 H 98 09/23/24 13:51 100 H 117/71 09/23/24 13:50 98 H 99 09/23/24 13:45 106 H 99 09/23/24 13:40 99 H 99 09/23/24 13:36 90 121/65 09/23/24 13:35 94 H 98 09/23/24 13:31 16 09/23/24 13:31 16 09/23/24 13:30 95 H 98 09/23/24 13:25 96 H 100 09/23/24 13:21 93 H 115/55 L 09/23/24 13:20 92 H 99 09/23/24 13:17 96 H 112/69 09/23/24 13:15 96 H 99 09/23/24 13:10 96 H 99 09/23/24 13:05 94 H 99 09/23/24 13:00 37.1 C 89 16 100 09/23/24 12:55 91 H 99 09/23/24 12:53 85 118/63 09/23/24 12:50 98 H 98 09/23/24 12:45 103 H 98 09/23/24 12:40 106 H 99 09/23/24 12:36 98 H 100/53 L 09/23/24 12:35 99 H 100 09/23/24 12:30 101 H 100 09/23/24 12:29 101 H 113/53 L 09/23/24 12:25 90 99 09/23/24 12:20 95 H 98 09/23/24 12:15 92 H 98 09/23/24 12:10 91 H 98 09/23/24 12:06 85 108/74 09/23/24 12:05 98 H 97 09/23/24 12:00 20 09/23/24 12:00 92 H 97 09/23/24 11:55 92 H 99 09/23/24 11:51 83 107/59 L 09/23/24 11:50 87 99 09/23/24 11:45 94 H 98 09/23/24 11:37 97 H 116/58 L 97 09/23/24 11:30 18 09/23/24 11:21 89 117/60 98 09/23/24 11:10 37.1 C 09/23/24 11:07 88 116/59 L 99 09/23/24 11:00 20 09/23/24 10:53 83 121/62 99 09/23/24 10:37 87 20 115/63 98 09/23/24 10:30 16 09/23/24 10:21 96 H 104/57 L 96 09/23/24 10:10 107 H 98/53 L 96 09/23/24 10:00 16 09/23/24 09:54 88 100/54 L 96 Coding Level of Care Code None Diagnoses Encounter for induction of labor Z34.90
[2024-09-23] MEDS: ceFAZolin 2000MG 2,000 MG/15 ML SYR IV SCH (22:13)
[2024-09-23] MEDS ORDERED: DEXAMETHASONE SOD INJ 4 MG/ML VIAL ONE (22:15)
[2024-09-23] MEDS ORDERED: ONDANSETRON INJ 2 MG/ML 2 ML VIAL ONE (22:15)
[2024-09-23] MEDS ORDERED: PHENYLEPHRINE HCL 25 MG/250 ML NSS IV ONE (22:15)
[2024-09-23] MEDS ORDERED: LIDOCAINE 2%/EPINEPHRINE 1:200,000 20 ML PF ONE (22:15)
[2024-09-23] MEDS: AZITHROMYCIN 500 MG in SODIUM CHLORIDE 0.9% 250 ML IV STA (22:19)
[2024-09-23] MEDS: CITRIC ACID/SODIUM CITRATE 15 ML UDC PO SCH (22:21)
[2024-09-23] MEDS: CARBOPROST TROMETHAMINE 250 MCG/ML AMPUL IM ONE (22:55)
[2024-09-23] MEDS ORDERED: PHENYLEPHRINE 100MCG/ML 5ML SYR ONE (22:58)
[2024-09-23] MEDS ORDERED: MoRPHine SULFATE PF 1 MG/ML 10 ML AMP/VIAL ONE (23:04)
[2024-09-23] MEDS ORDERED: PROMETHAZINE 6.25 MG/50.25 ML BAG IV PRN (23:06)
[2024-09-23] MEDS ORDERED: oxyCODONE HCL IR 5 MG TAB (IMMEDIATE RELEASE) PO PRN (23:06)
[2024-09-23] MEDS ORDERED: ONDANSETRON INJ 2 MG/ML 2 ML VIAL IV PRN (23:06)
[2024-09-23] MEDS ORDERED: HYDROmorphone INJ 0.5 MG/0.5 ML SYR IV PRN (23:06)
[2024-09-23] MEDS ORDERED: NO NARCOTICS OR SEDATIVES SCH (23:15)
[2024-09-23] MEDS ORDERED: DC INTRASPINAL MORPHINE SCH (23:15)
--- NOTE | 2024-09-23 23:34 | Anesthesiology Progress Note ---
Date of Service September 23, 2024 Anesthesia Post Procedure Vital Signs Vital Signs: Temp Pulse Resp BP Pulse Ox 09/23/24 23:28 104 H 100 09/23/24 23:25 108 H 135/62 09/23/24 22:21 127 H 129/64 09/23/24 22:20 118 H 98 09/23/24 22:15 112 H 98 09/23/24 22:10 114 H 96 09/23/24 22:06 116 H 132/72 09/23/24 22:05 117 H 97 09/23/24 22:00 107 H 97 09/23/24 21:55 110 H 96 09/23/24 21:51 113 H 130/71 09/23/24 21:50 116 H 97 09/23/24 21:45 104 H 96 09/23/24 21:42 112 H 94 09/23/24 21:40 119 H 98 09/23/24 21:36 110 H 120/67 09/23/24 21:35 109 H 97 09/23/24 21:30 110 H 96 09/23/24 21:25 110 H 97 09/23/24 21:21 99.3 F 103 H 121/60 09/23/24 21:20 106 H 94 09/23/24 21:19 104 H 94 09/23/24 21:15 101 H 94 09/23/24 21:12 105 H 94 09/23/24 21:10 101 H 95 09/23/24 21:06 99 H 118/58 L 94 09/23/24 21:05 102 H 95 09/23/24 21:00 100 H 95 09/23/24 20:55 110 H 96 09/23/24 20:51 101 H 118/63 09/23/24 20:50 104 H 95 09/23/24 20:45 106 H 96 09/23/24 20:40 107 H 96 09/23/24 20:37 100 H 120/68 09/23/24 20:35 101 H 97 09/23/24 20:30 102 H 98 09/23/24 20:25 111 H 99 09/23/24 20:21 109 H 113/57 L 09/23/24 20:20 107 H 98 09/23/24 20:15 110 H 98 09/23/24 20:10 105 H 99 09/23/24 20:06 107 H 108/58 L 09/23/24 20:05 107 H 99 09/23/24 20:00 109 H 99 09/23/24 19:55 109 H 99 09/23/24 19:50 113 H 98 09/23/24 19:45 122 H 99 09/23/24 19:40 114 H 97 09/23/24 19:35 109 H 99 09/23/24 19:30 99 H 99 09/23/24 19:25 104 H 98 09/23/24 19:21 101 H 132/74 09/23/24 19:20 109 H 98 09/23/24 19:15 105 H 98 09/23/24 19:10 98.6 F 20 09/23/24 19:10 104 H 98 09/23/24 19:07 103 H 131/72 09/23/24 19:05 109 H 98 09/23/24 19:00 104 H 18 98 09/23/24 18:55 105 H 98 09/23/24 18:51 112 H 122/57 L 09/23/24 18:50 106 H 99 09/23/24 18:45 103 H 97 09/23/24 18:40 107 H 99 09/23/24 18:37 99 H 124/69 09/23/24 18:35 101 H 99 09/23/24 18:30 100 H 18 98 09/23/24 18:25 108 H 99 09/23/24 18:21 112 H 117/67 09/23/24 18:20 111 H 99 09/23/24 18:15 111 H 99 09/23/24 18:10 116 H 98 09/23/24 18:07 102 H 125/75 09/23/24 18:05 108 H 97 09/23/24 18:00 101 H 18 97 09/23/24 17:55 106 H 97 09/23/24 17:52 102 H 127/69 09/23/24 17:50 110 H 97 09/23/24 17:45 107 H 96 09/23/24 17:40 113 H 97 09/23/24 17:36 109 H 126/76 09/23/24 17:35 107 H 97 09/23/24 17:30 104 H 18 97 09/23/24 17:25 109 H 99 09/23/24 17:21 108 H 110/58 L 09/23/24 17:20 103 H 96 09/23/24 17:15 99.3 F 100 H 16 96 09/23/24 17:10 103 H 96 09/23/24 17:06 105 H 101/56 L 09/23/24 17:05 102 H 97 09/23/24 17:00 102 H 16 96 09/23/24 16:55 101 H 97 09/23/24 16:51 100 H 101/50 L 09/23/24 16:50 100 H 97 09/23/24 16:45 105 H 98 09/23/24 16:41 102 H 104/53 L 09/23/24 16:40 107 H 99 09/23/24 16:35 106 H 99 09/23/24 16:30 105 H 16 99 09/23/24 16:25 107 H 99 09/23/24 16:22 100 H 117/58 L 09/23/24 16:20 108 H 98 09/23/24 16:15 104 H 97 09/23/24 16:10 102 H 97 09/23/24 16:08 98 H 119/62 09/23/24 16:05 99 H 98 09/23/24 16:00 103 H 16 97 09/23/24 15:55 104 H 99 09/23/24 15:51 106 H 125/64 09/23/24 15:50 104 H 99 09/23/24 15:45 95 H 99 09/23/24 15:40 102 H 100 09/23/24 15:37 106 H 123/66 09/23/24 15:35 108 H 98 09/23/24 15:30 18 09/23/24 15:30 18 09/23/24 15:30 106 H 20 99 09/23/24 15:25 112 H 99 09/23/24 15:20 120 H 97 09/23/24 15:15 121 H 98 09/23/24 15:10 115 H 99 09/23/24 15:05 116 H 99 09/23/24 15:01 18 09/23/24 15:01 98.6 F 18 09/23/24 15:00 114 H 99 09/23/24 14:58 115 H 104/67 09/23/24 14:55 108 H 99 09/23/24 14:50 104 H 98 09/23/24 14:45 99 H 97 09/23/24 14:40 101 H 98 09/23/24 14:36 96 H 115/69 09/23/24 14:35 99 H 98 09/23/24 14:31 20 09/23/24 14:31 20 09/23/24 14:30 102 H 98 09/23/24 14:25 101 H 98 09/23/24 14:21 103 H 124/60 09/23/24 14:20 108 H 98 09/23/24 14:15 98 H 98 09/23/24 14:10 99 H 99 09/23/24 14:06 96 H 126/63 09/23/24 14:05 98 H 99 09/23/24 14:01 18 09/23/24 14:01 18 09/23/24 14:00 98 H 99 09/23/24 13:55 101 H 98 09/23/24 13:51 100 H 117/71 09/23/24 13:50 98 H 99 09/23/24 13:45 106 H 99 09/23/24 13:40 99 H 99 09/23/24 13:36 90 121/65 09/23/24 13:35 94 H 98 09/23/24 13:31 16 09/23/24 13:31 16 09/23/24 13:30 95 H 98 09/23/24 13:25 96 H 100 09/23/24 13:21 93 H 115/55 L 09/23/24 13:20 92 H 99 09/23/24 13:17 96 H 112/69 09/23/24 13:15 96 H 99 09/23/24 13:10 96 H 99 09/23/24 13:05 94 H 99 09/23/24 13:00 98.8 F 89 16 100 09/23/24 12:55 91 H 99 09/23/24 12:53 85 118/63 09/23/24 12:50 98 H 98 09/23/24 12:45 103 H 98 09/23/24 12:40 106 H 99 09/23/24 12:36 98 H 100/53 L 09/23/24 12:35 99 H 100 09/23/24 12:30 101 H 100 09/23/24 12:29 101 H 113/53 L 09/23/24 12:25 90 99 09/23/24 12:20 95 H 98 09/23/24 12:15 92 H 98 09/23/24 12:10 91 H 98 09/23/24 12:06 85 108/74 09/23/24 12:05 98 H 97 09/23/24 12:00 20 09/23/24 12:00 92 H 97 09/23/24 11:55 92 H 99 09/23/24 11:51 83 107/59 L 09/23/24 11:50 87 99 09/23/24 11:45 94 H 98 09/23/24 11:37 97 H 116/58 L 97 09/23/24 11:30 18 09/23/24 11:21 89 117/60 98 09/23/24 11:10 98.8 F 09/23/24 11:07 88 116/59 L 99 09/23/24 11:00 20 09/23/24 10:53 83 121/62 99 09/23/24 10:37 87 20 115/63 98 09/23/24 10:30 16 09/23/24 10:21 96 H 104/57 L 96 09/23/24 10:10 107 H 98/53 L 96 09/23/24 10:00 16 09/23/24 09:54 88 100/54 L 96 09/23/24 09:40 99 H 101/57 L 98 09/23/24 09:30 18 09/23/24 09:09 97 H 110/56 L 96 09/23/24 09:00 98.8 F 16 09/23/24 08:54 88 100/54 L 96 09/23/24 08:50 91 H 98 09/23/24 08:45 93 H 97 09/23/24 08:40 109 H 98 09/23/24 08:39 108 H 124/58 L 09/23/24 08:36 107 H 118/69 09/23/24 08:35 106 H 98 09/23/24 08:31 98 H 127/64 09/23/24 08:30 18 09/23/24 08:30 98 H 99 09/23/24 08:25 99 H 98 09/23/24 08:24 96 H 128/59 L 09/23/24 08:22 99 H 128/83 01/21/25 08:20 100 H 98 09/23/24 08:19 99 H 123/57 L 09/23/24 08:17 104 H 123/58 L 09/23/24 08:15 98 H 120/59 L 99 09/23/24 08:13 103 H 127/61 09/23/24 08:11 108 H 131/62 09/23/24 08:10 113 H 100 09/23/24 08:09 100 H 132/68 09/23/24 08:07 89 128/71 09/23/24 08:05 94 H 100 09/23/24 08:00 95 H 99 09/23/24 07:59 95 H 126/74 09/23/24 07:55 95 H 97 09/23/24 07:30 20 09/23/24 07:30 99.5 F 20 09/23/24 07:24 94 H 119/66 09/23/24 03:50 73 117/57 L 09/23/24 03:48 18 09/23/24 03:48 98.2 F 18 09/23/24 02:00 98.2 F 09/23/24 01:00 18 09/23/24 01:00 98.6 F 18 Transfer of Care Handoff Completed per policy Notes Mental Status: alert / awake / arousable and participated in evaluation Patient Amnestic to Procedure: Yes Nausea / Vomiting: adequately controlled Pain: adequately controlled Airway Patency, RR, SpO2: stable & adequate BP & HR: stable & adequate Hydration State: stable & adequate Neuraxial Anesthesia: was administered and sensory block is resolving Anesthetic Complications: no major complications apparent and Pt Satisfied with anesthetic care
--- NOTE | 2024-09-23 23:34 | Anesthesia Procedure Note ---
Date of Service September 23, 2024 Anesthesia Post Epidural Note Vital Signs Vital Signs: Temp Pulse Resp BP Pulse Ox 99.3 F 102 H 20 135/62 100 09/23/24 21:21 09/23/24 23:33 09/23/24 19:10 09/23/24 23:25 09/23/24 23:33 Notes Mental Status: alert / awake / arousable and participated in evaluation Nausea / Vomiting: adequately controlled Pain: adequately controlled Airway Patency, RR, SpO2: stable & adequate BP & HR: stable & adequate Hydration State: stable & adequate Neuraxial Anesthesia: was administered and sensory block is resolving Anesthetic Complications: no major complications apparent and Pt Satisfied with anesthetic care Epidural: Removed without complications and With tip intact
--- NOTE | 2024-09-23 23:35 | Operative Report ---
Post Operative Report Pre & Post Diagnosis Operation Date: 09/23/24 22:00 Pre-Op Diagnosis: IUP at 39weeks Failure to progress GDM Post-Op Diagnosis: IUP at 39weeks Failure to progress GDM I identified the patient and participated in the time-out.: Yes Procedure Operation Date: 09/23/24 22:00 Actual Procedures p Primary low transverse Section. Live male child born at 2247 - Leanne Alfaro MD, FACOG Surgeon Leanne Alfaro MD, FACOG Metal Tube Cutter Sole Stringer RN Quantitative Blood Loss (QBL) 501 Findings Consistent with Post-Op Diagnosis viable male , in transverse, occiput right position, loose nuchal cord, clear fluid, apgars 9/9. normal appearing uterus and ovaries. Fluids 800cc uop--250cc, clear Specimens none Drains dupree Anesthesia Type Labor Epidural Complications none Disposition Accompanied Patient To Recovery: Yes Disposition: L&D Indications [id number] with iol for insulin requiring GDM at 39 3/7 weeks. Dupree bulb for ripening. When out 3cm. Received pitocin and eventually arom for clear fluid when 4cm. She made no further progress since 5pm yesterday dispite maxing pitocin and arom. Description of Procedure The patient was taken to the operating room where she was identified verbally and by bracelet. She was placed on the operating table and her epidural was dosed by anesthesia. She was then placed in the supine position with a leftward tilt. A Dupree catheter had been placed sterilely. the patient was prepped and draped in a normal standard fashion. the anesthetic was tested and found to be adequate. A time-out was held, identifying correct patient, procedure, positioning and preoperative antibiotics. There were no concerns. A Pfannenstiel skin incision was made with a knife and taken down to the underlying layer of fascia with the knife and Bovie electrocautery. Bleeding was attended to with the Bovie. The fascia was incised in the midline with the knife and taken out laterally with scissors. The superior edge of the fascial incision was grasped, elevated and the underlying layer of rectus muscle was taken off bluntly and with scissors. In a similar fashion, the inferior edge of the fascial incision was grasped, elevated and the underlying layer of rectus muscle was taken off bluntly and with scissors. The muscles were bluntly in the midline. The peritoneum was entered bluntly. The incision was then stretched. The bladder blade was placed. The vesicouterine peritoneum was identified, entered with scissors and taken out laterally with scissors. The bladder flap was created digitally A hysterotomy incision was scored with a knife and the incision was stretched superiorly and inferiorly with the dairy powder mixer operator's fingers. The operators hand was placed into the incision and the head was delivered atraumatically. Nuchal cord x 1 was reduced, loose. The nose and mouth were bulb suctioned. the rest of the was then delivered without difficulty. The nose and mouth were again bulb suctioned. The cord was clamped and cut and the infant was then handed off to the awaiting certification and selection specialist for drying and attention. Cord blood and segment were obtained. The placenta was expressed. The uterus was exteriorized and cleared of all clot and debris with moistened laparotomy sponges. The hysterotomy incision was repaired in two layers, the first in a running locked layer, the second in an i mbricating layer. Hemostasis was noted to be good. Posterior cul-de-sac was irrigated and cleared of all clot and debris. The hysterotomy incision was again inspected and found to be hemostatic. the uterus was reinteriorized. Hysterotomy incision was again inspected and found to be hemostatic. The fascia was then reapproximated with 0 Vicryl starting at the edges and meeting in the midline. The subcuticular tissues were copiously irrigated and bleeding was attended to with cautery. The skin was then closed with 4-0 Vicryl in a subcuticular fashion. All sponge , lap and needle counts were correct x 2. the patient tolerated the procedure well and was taken to the recovery room in stable condition. I attest to the content of the Intraoperative Record and any orders documented therein. Any exceptions are noted below.
[2024-09-23] MEDS ORDERED: SENNA 8.6 MG TAB PO PRN (23:37)
[2024-09-23] MEDS ORDERED: HYDROCORTISONE ACETATE 25 MG SUPP PR PRN (23:37)
[2024-09-23] MEDS ORDERED: CALCIUM CARBONATE 500 MG CHEWABLE TAB PO PRN (23:37)
[2024-09-23] MEDS ORDERED: MAGNESIUM HYDROXIDE SUSP 30 ML UDC PO PRN (23:37)
[2024-09-23] MEDS ORDERED: BENZOCAINE 20% SPRY 85 APPLN/85 GM CAN EXT PRN (23:37)
--- NOTE | 2024-09-23 23:37 | Anesthesia Procedure Note ---
Date of Service September 23, 2024 Anesthesia Post Epidural Note Vital Signs Vital Signs: Temp Pulse Resp BP Pulse Ox 37.4 C 101 H 20 131/67 100 09/23/24 21:21 09/23/24 23:35 09/23/24 19:10 09/23/24 23:35 09/23/24 23:33 Notes Mental Status: alert / awake / arousable and participated in evaluation Patient Amnestic to Procedure: No Nausea / Vomiting: adequately controlled Pain: adequately controlled Airway Patency, RR, SpO2: stable & adequate BP & HR: stable & adequate Hydration State: stable & adequate Neuraxial Anesthesia: was administered and sensory block is resolving Anesthetic Complications: no major complications apparent and Pt Satisfied with anesthetic care Epidural: Removed without complications and With tip intact
--- NOTE | 2024-09-23 23:38 | Anesthesiology Progress Note ---
Date of Service September 23, 2024 Anesthesia Post Procedure Vital Signs Vital Signs: Temp Pulse Resp BP Pulse Ox 09/23/24 23:35 101 H 131/67 09/23/24 23:33 102 H 100 09/23/24 23:28 104 H 100 09/23/24 23:25 108 H 135/62 09/23/24 22:21 127 H 129/64 09/23/24 22:20 118 H 98 09/23/24 22:15 112 H 98 09/23/24 22:10 114 H 96 09/23/24 22:06 116 H 132/72 09/23/24 22:05 117 H 97 09/23/24 22:00 107 H 97 09/23/24 21:55 110 H 96 09/23/24 21:51 113 H 130/71 09/23/24 21:50 116 H 97 09/23/24 21:45 104 H 96 09/23/24 21:42 112 H 94 09/23/24 21:40 119 H 98 09/23/24 21:36 110 H 120/67 09/23/24 21:35 109 H 97 09/23/24 21:30 110 H 96 09/23/24 21:25 110 H 97 09/23/24 21:21 37.4 C 103 H 121/60 09/23/24 21:20 106 H 94 09/23/24 21:19 104 H 94 09/23/24 21:15 101 H 94 09/23/24 21:12 105 H 94 09/23/24 21:10 101 H 95 09/23/24 21:06 99 H 118/58 L 94 09/23/24 21:05 102 H 95 09/23/24 21:00 100 H 95 09/23/24 20:55 110 H 96 09/23/24 20:51 101 H 118/63 09/23/24 20:50 104 H 95 09/23/24 20:45 106 H 96 09/23/24 20:40 107 H 96 09/23/24 20:37 100 H 120/68 09/23/24 20:35 101 H 97 09/23/24 20:30 102 H 98 09/23/24 20:25 111 H 99 09/23/24 20:21 109 H 113/57 L 09/23/24 20:20 107 H 98 09/23/24 20:15 110 H 98 09/23/24 20:10 105 H 99 09/23/24 20:06 107 H 108/58 L 09/23/24 20:05 107 H 99 09/23/24 20:00 109 H 99 09/23/24 19:55 109 H 99 09/23/24 19:50 113 H 98 09/23/24 19:45 122 H 99 09/23/24 19:40 114 H 97 09/23/24 19:35 109 H 99 09/23/24 19:30 99 H 99 09/23/24 19:25 104 H 98 09/23/24 19:21 101 H 132/74 09/23/24 19:20 109 H 98 09/23/24 19:15 105 H 98 09/23/24 19:10 37.0 C 20 09/23/24 19:10 104 H 98 09/23/24 19:07 103 H 131/72 09/23/24 19:05 109 H 98 09/23/24 19:00 104 H 18 98 09/23/24 18:55 105 H 98 09/23/24 18:51 112 H 122/57 L 09/23/24 18:50 106 H 99 09/23/24 18:45 103 H 97 09/23/24 18:40 107 H 99 09/23/24 18:37 99 H 124/69 09/23/24 18:35 101 H 99 09/23/24 18:30 100 H 18 98 09/23/24 18:25 108 H 99 09/23/24 18:21 112 H 117/67 09/23/24 18:20 111 H 99 09/23/24 18:15 111 H 99 09/23/24 18:10 116 H 98 09/23/24 18:07 102 H 125/75 09/23/24 18:05 108 H 97 09/23/24 18:00 101 H 18 97 09/23/24 17:55 106 H 97 09/23/24 17:52 102 H 127/69 09/23/24 17:50 110 H 97 09/23/24 17:45 107 H 96 09/23/24 17:40 113 H 97 09/23/24 17:36 109 H 126/76 09/23/24 17:35 107 H 97 09/23/24 17:30 104 H 18 97 09/23/24 17:25 109 H 99 09/23/24 17:21 108 H 110/58 L 09/23/24 17:20 103 H 96 09/23/24 17:15 37.4 C 100 H 16 96 09/23/24 17:10 103 H 96 09/23/24 17:06 105 H 101/56 L 09/23/24 17:05 102 H 97 09/23/24 17:00 102 H 16 96 09/23/24 16:55 101 H 97 09/23/24 16:51 100 H 101/50 L 09/23/24 16:50 100 H 97 09/23/24 16:45 105 H 98 09/23/24 16:41 102 H 104/53 L 09/23/24 16:40 107 H 99 09/23/24 16:35 106 H 99 09/23/24 16:30 105 H 16 99 09/23/24 16:25 107 H 99 09/23/24 16:22 100 H 117/58 L 09/23/24 16:20 108 H 98 09/23/24 16:15 104 H 97 09/23/24 16:10 102 H 97 09/23/24 16:08 98 H 119/62 09/23/24 16:05 99 H 98 09/23/24 16:00 103 H 16 97 09/23/24 15:55 104 H 99 09/23/24 15:51 106 H 125/64 09/23/24 15:50 104 H 99 09/23/24 15:45 95 H 99 09/23/24 15:40 102 H 100 09/23/24 15:37 106 H 123/66 09/23/24 15:35 108 H 98 09/23/24 15:30 18 09/23/24 15:30 18 09/23/24 15:30 106 H 20 99 09/23/24 15:25 112 H 99 09/23/24 15:20 120 H 97 09/23/24 15:15 121 H 98 09/23/24 15:10 115 H 99 09/23/24 15:05 116 H 99 09/23/24 15:01 18 09/23/24 15:01 37.0 C 18 09/23/24 15:00 114 H 99 09/23/24 14:58 115 H 104/67 09/23/24 14:55 108 H 99 09/23/24 14:50 104 H 98 09/23/24 14:45 99 H 97 09/23/24 14:40 101 H 98 09/23/24 14:36 96 H 115/69 09/23/24 14:35 99 H 98 09/23/24 14:31 20 09/23/24 14:31 20 09/23/24 14:30 102 H 98 09/23/24 14:25 101 H 98 09/23/24 14:21 103 H 124/60 09/23/24 14:20 108 H 98 09/23/24 14:15 98 H 98 09/23/24 14:10 99 H 99 09/23/24 14:06 96 H 126/63 09/23/24 14:05 98 H 99 09/23/24 14:01 18 09/23/24 14:01 18 09/23/24 14:00 98 H 99 09/23/24 13:55 101 H 98 09/23/24 13:51 100 H 117/71 09/23/24 13:50 98 H 99 09/23/24 13:45 106 H 99 09/23/24 13:40 99 H 99 09/23/24 13:36 90 121/65 09/23/24 13:35 94 H 98 09/23/24 13:31 16 09/23/24 13:31 16 09/23/24 13:30 95 H 98 09/23/24 13:25 96 H 100 09/23/24 13:21 93 H 115/55 L 09/23/24 13:20 92 H 99 09/23/24 13:17 96 H 112/69 09/23/24 13:15 96 H 99 09/23/24 13:10 96 H 99 09/23/24 13:05 94 H 99 09/23/24 13:00 37.1 C 89 16 100 09/23/24 12:55 91 H 99 09/23/24 12:53 85 118/63 09/23/24 12:50 98 H 98 09/23/24 12:45 103 H 98 09/23/24 12:40 106 H 99 09/23/24 12:36 98 H 100/53 L 09/23/24 12:35 99 H 100 09/23/24 12:30 101 H 100 09/23/24 12:29 101 H 113/53 L 09/23/24 12:25 90 99 09/23/24 12:20 95 H 98 09/23/24 12:15 92 H 98 09/23/24 12:10 91 H 98 09/23/24 12:06 85 108/74 09/23/24 12:05 98 H 97 09/23/24 12:00 20 09/23/24 12:00 92 H 97 09/23/24 11:55 92 H 99 09/23/24 11:51 83 107/59 L 09/23/24 11:50 87 99 09/23/24 11:45 94 H 98 09/23/24 11:37 97 H 116/58 L 97 09/23/24 11:30 18 09/23/24 11:21 89 117/60 98 09/23/24 11:10 37.1 C 09/23/24 11:07 88 116/59 L 99 09/23/24 11:00 20 09/23/24 10:53 83 121/62 99 09/23/24 10:37 87 20 115/63 98 09/23/24 10:30 16 09/23/24 10:21 96 H 104/57 L 96 09/23/24 10:10 107 H 98/53 L 96 09/23/24 10:00 16 09/23/24 09:54 88 100/54 L 96 09/23/24 09:40 99 H 101/57 L 98 09/23/24 09:30 18 09/23/24 09:09 97 H 110/56 L 96 09/23/24 09:00 37.1 C 16 09/23/24 08:54 88 100/54 L 96 09/23/24 08:50 91 H 98 09/23/24 08:45 93 H 97 09/23/24 08:40 109 H 98 09/23/24 08:39 108 H 124/58 L 09/23/24 08:36 107 H 118/69 09/23/24 08:35 106 H 98 09/23/24 08:31 98 H 127/64 09/23/24 08:30 18 09/23/24 08:30 98 H 99 09/23/24 08:25 99 H 98 09/23/24 08:24 96 H 128/59 L 09/23/24 08:22 99 H 128/83 09/23/24 08:20 100 H 98 09/23/24 08:19 99 H 123/57 L 09/23/24 08:17 104 H 123/58 L 09/23/24 08:15 98 H 120/59 L 99 09/23/24 08:13 103 H 127/61 09/23/24 08:11 108 H 131/62 09/23/24 08:10 113 H 100 09/23/24 08:09 100 H 132/68 09/23/24 08:07 89 128/71 09/23/24 08:05 94 H 100 09/23/24 08:00 95 H 99 09/23/24 07:59 95 H 126/74 09/23/24 07:55 95 H 97 09/23/24 07:30 20 09/23/24 07:30 37.5 C 20 09/23/24 07:24 94 H 119/66 09/23/24 03:50 73 117/57 L 09/23/24 03:48 18 09/23/24 03:48 36.8 C 18 09/23/24 02:00 36.8 C 09/23/24 01:00 18 09/23/24 01:00 37.0 C 18 Notes Mental Status: alert / awake / arousable and participated in evaluation Patient Amnestic to Procedure: No Nausea / Vomiting: adequately controlled Pain: adequately controlled Airway Patency, RR, SpO2: stable & adequate BP & HR: stable & adequate Hydration State: stable & adequate Neuraxial Anesthesia: was administered and sensory block is resolving Anesthetic Complications: no major complications apparent and Pt Satisfied with anesthetic care
[2024-09-23] MEDS ORDERED: Nursing to Pharmacy Communication SCH (23:45)
[2024-09-23] MEDS: ACETAMINOPHEN 325 MG TAB ONE (23:55)
[2024-09-23] MEDS: KETOROLAC 30 MG/ML VIAL IV SCH (23:56)
[2024-09-24] MEDS: OXYTOCIN 20 UNITS/LR 1,002 ML IV SCH (02:09)
[2024-09-24] MEDS: CITRIC ACID/SODIUM CITRATE 15 ML UDC ONE (02:27)
[2024-09-24] MEDS: DIPHTHER/TETAN/PERTUS Vaccine (Tdap, Adol/Adult) 0.5mL IM ONE (02:29)
[2024-09-24] MEDS: ACETAMINOPHEN 325 MG TAB PO SCH (05:12)
[2024-09-24] MEDS ORDERED: CITRIC ACID/SODIUM CITRATE 15 ML UDC PO SCH (06:00)
[2024-09-24 06:36] LABS: Hematocrit (blood only) 36.2 % (37.0-47.0); Hemoglobin 12.6 g/dl (12.0-16.0); Mean Corpuscular Hemoglobin 31.7 pg (25.0-34.0); Mean Corpuscular Hgb Conc 34.8 g/dL (32.0-36.0); Mean Corpuscular Volume 91.2 fL (80.0-100.0); Platelet Count 160 K/uL (130-400); RDW Coefficient of Variation 13.4 % (11.5-14.5); RDW Standard Deviation 44.9 fL (36.4-46.3); Red Blood Count 3.97 M/uL (4.20-5.40); White Blood Count 21.99 K/ul (4.8-10.8)
[2024-09-24 07:11] LABS: Basophils # (auto) 0.04 K/uL (0.00-0.20); Basophils % (auto) 0.2 %; Dohle Bodies Occasional; Immature Granulocytes # (auto) 0.14 K/uL (0.01-0.20); Immature Granulocytes % (auto) 0.6 %; Lymphocytes # (auto) 0.78 K/uL (1.20-3.40); Lymphocytes % (auto) 3.5 %; Monocytes # (auto) 1.23 K/uL (0.11-0.59); Monocytes % (auto) 5.6 %; Neutrophils % (auto) 90.1 %
--- NOTE | 2024-09-24 07:26 | Obstetrical Progress Note ---
Date of Service September 24, 2024 Assessment & Plan (1) Encounter for assessment: (2) delivery delivered: Plan Doing well. Encourage ambulation and voiding. ADAT. Pain well controlled. Routine postop / care. Day #:: 1 Subjective Ambulation: limited ambulation Voiding: dupree catheter in place (just removed) Passing Gas:: No Diet Tolerance:: regular diet Lochia:: Small Feeding Type:: breast feeding Pain controlled Physical Exam Constitutional WD/WN, vitals as above Cardiovascular Extremities: no calf tenderness and no edema Gastrointestinal (Abdomen) soft, nt, nd dressing c/d/i ff/appro tender at u Psychiatric A+Ox3, euthymic affect Results & Data Vital Signs (Past 12 Hours) Vital Signs Temp Pulse Pulse Resp BP BP Pulse Ox 09/24/24 06:11 18 95 09/24/24 05:00 18 99 09/24/24 04:07 18 94 09/24/24 03:00 18 96 09/24/24 03:00 09/24/24 03:00 36.7 C 87 18 113/72 96 09/24/24 01:41 95 H 97 09/24/24 01:36 96 H 09/24/24 01:36 95 H 126/71 96 09/24/24 01:35 36.4 C L 22 09/24/24 01:31 88 96 09/24/24 01:26 91 H 130/58 L 96 09/24/24 01:21 91 H 97 09/24/24 01:16 96 H 95 09/24/24 01:15 90 117/57 L 09/24/24 01:11 95 H 95 09/24/24 01:06 92 H 96 09/24/24 01:05 18 09/24/24 01:05 91 H 119/55 L 09/24/24 01:01 95 H 96 09/24/24 00:56 94 H 120/57 L 95 09/24/24 00:51 95 H 95 09/24/24 00:46 94 H 95 09/24/24 00:45 93 H 110/52 L 09/24/24 00:41 101 H 96 09/24/24 00:36 99 H 121/53 L 09/24/24 00:35 36.6 C 20 09/24/24 00:35 36.6 C 20 09/24/24 00:33 98 H 97 09/24/24 00:28 101 H 95 09/24/24 00:25 20 09/24/24 00:25 104 H 121/70 09/24/24 00:23 94 09/24/24 00:23 106 H 09/24/24 00:23 103 H 95 09/24/24 00:18 102 H 96 09/24/24 00:15 22 09/24/24 00:15 101 H 123/72 09/24/24 00:13 103 H 95 09/24/24 00:08 100 H 97 09/24/24 00:05 22 09/24/24 00:05 96 H 117/62 09/24/24 00:03 97 H 99 09/23/24 23:58 102 H 100 09/23/24 23:56 96 H 132/60 09/23/24 23:55 24 09/23/24 23:53 98 H 99 09/23/24 23:48 98 H 99 09/23/24 23:46 97 H 119/53 L 09/23/24 23:45 20 09/23/24 23:43 102 H 99 09/23/24 23:38 101 H 100 09/23/24 23:35 37.3 C 18 09/23/24 23:35 101 H 131/67 09/23/24 23:33 102 H 100 09/23/24 23:28 104 H 100 09/23/24 23:25 108 H 135/62 09/23/24 22:21 127 H 129/64 09/23/24 22:20 118 H 98 09/23/24 22:15 112 H 98 09/23/24 22:10 114 H 96 09/23/24 22:06 116 H 132/72 09/23/24 22:05 117 H 97 09/23/24 22:00 107 H 97 09/23/24 21:55 110 H 96 09/23/24 21:51 113 H 130/71 09/23/24 21:50 116 H 97 09/23/24 21:45 104 H 96 09/23/24 21:42 112 H 94 09/23/24 21:40 119 H 98 09/23/24 21:36 110 H 120/67 09/23/24 21:35 109 H 97 09/23/24 21:30 110 H 96 09/23/24 21:25 110 H 97 09/23/24 21:21 37.4 C 103 H 121/60 09/23/24 21:20 106 H 94 09/23/24 21:19 104 H 94 09/23/24 21:15 101 H 94 09/23/24 21:12 105 H 94 09/23/24 21:10 101 H 95 09/23/24 21:06 99 H 118/58 L 94 09/23/24 21:05 102 H 95 09/23/24 21:00 100 H 95 09/23/24 20:55 110 H 96 09/23/24 20:51 101 H 118/63 09/23/24 20:50 104 H 95 09/23/24 20:45 106 H 96 09/23/24 20:40 107 H 96 09/23/24 20:37 100 H 120/68 09/23/24 20:35 101 H 97 09/23/24 20:30 102 H 98 09/23/24 20:25 111 H 99 09/23/24 20:21 109 H 113/57 L 09/23/24 20:20 107 H 98 09/23/24 20:15 110 H 98 09/23/24 20:10 105 H 99 09/23/24 20:06 107 H 108/58 L 09/23/24 20:05 107 H 99 09/23/24 20:00 109 H 99 09/23/24 19:55 109 H 99 09/23/24 19:50 113 H 98 09/23/24 19:45 122 H 99 09/23/24 19:40 114 H 97 09/23/24 19:35 109 H 99 09/23/24 19:30 99 H 99 09/23/24 19:25 104 H 98 O2 Del Method 09/24/24 06:11 09/24/24 05:00 09/24/24 04:07 09/24/24 03:00 09/24/24 03:00 Room Air 09/24/24 03:00 Room Air 09/24/24 01:41 09/24/24 01:36 09/24/24 01:36 09/24/24 01:35 09/24/24 01:31 09/24/24 01:26 09/24/24 01:21 09/24/24 01:16 09/24/24 01:15 09/24/24 01:11 09/24/24 01:06 09/24/24 01:05 09/24/24 01:05 09/24/24 01:01 09/24/24 00:56 09/24/24 00:51 09/24/24 00:46 09/24/24 00:45 09/24/24 00:41 09/24/24 00:36 09/24/24 00:35 09/24/24 00:35 09/24/24 00:33 09/24/24 00:28 09/24/24 00:25 09/24/24 00:25 09/24/24 00:23 09/24/24 00:23 09/24/24 00:23 09/24/24 00:18 09/24/24 00:15 09/24/24 00:15 09/24/24 00:13 09/24/24 00:08 09/24/24 00:05 09/24/24 00:05 09/24/24 00:03 09/23/24 23:58 09/23/24 23:56 09/23/24 23:55 09/23/24 23:53 09/23/24 23:48 09/23/24 23:46 09/23/24 23:45 09/23/24 23:43 09/23/24 23:38 09/23/24 23:35 09/23/24 23:35 09/23/24 23:33 09/23/24 23:28 09/23/24 23:25 09/23/24 22:21 09/23/24 22:20 09/23/24 22:15 09/23/24 22:10 09/23/24 22:06 09/23/24 22:05 09/23/24 22:00 09/23/24 21:55 09/23/24 21:51 09/23/24 21:50 09/23/24 21:45 09/23/24 21:42 09/23/24 21:40 09/23/24 21:36 09/23/24 21:35 09/23/24 21:30 09/23/24 21:25 09/23/24 21:21 09/23/24 21:20 09/23/24 21:19 09/23/24 21:15 09/23/24 21:12 09/23/24 21:10 09/23/24 21:06 09/23/24 21:05 09/23/24 21:00 09/23/24 20:55 09/23/24 20:51 09/23/24 20:50 09/23/24 20:45 09/23/24 20:40 09/23/24 20:37 09/23/24 20:35 09/23/24 20:30 09/23/24 20:25 09/23/24 20:21 09/23/24 20:20 09/23/24 20:15 09/23/24 20:10 09/23/24 20:06 09/23/24 20:05 09/23/24 20:00 09/23/24 19:55 09/23/24 19:50 09/23/24 19:45 09/23/24 19:40 09/23/24 19:35 09/23/24 19:30 09/23/24 19:25
[2024-09-24] MEDS: PRENATAL VITAMIN 1 TAB PO SCH (08:17)
[2024-09-24] MEDS: SIMETHICONE 80 MG CHEW PO SCH (08:17)
[2024-09-24] MEDS: DOCUSATE SODIUM 100 MG CAP PO SCH (08:17)
[2024-09-24] MEDS: FERROUS SULFATE 325 MG TAB PO SCH (08:17)
[2024-09-24] MEDS: NALOXONE HCL 0.08 MG in SYRINGE 1.8 ML IV PRN (13:14)
[2024-09-24] MEDS ORDERED: PROMETHAZINE 12.5 MG/50.5 ML BAG IV PRN (17:06)
[2024-09-24] MEDS ORDERED: diphenhydrAMINE Capsule 25 MG CAP PO PRN (17:06)
[2024-09-24] MEDS ORDERED: HYDROmorphone INJ 0.5 MG/0.5 ML SYR IV PRN (17:06)
[2024-09-24] MEDS ORDERED: diphenhydrAMINE 50 MG/ML VIAL IV PRN (17:06)
[2024-09-24] MEDS ORDERED: ONDANSETRON INJ 2 MG/ML 2 ML VIAL IV PRN (17:06)
[2024-09-24] MEDS: bisacodyL 5 MG TABEC PO SCH (21:11)
[2024-09-24] MEDS ORDERED: KETOROLAC 30 MG/ML VIAL IV PRN (23:27)
[2024-09-24] MEDS: IBUPROFEN 600 MG TAB PO SCH (23:48)
[2024-09-25 06:15] LABS: Hematocrit (blood only) 31.8 % (37.0-47.0); Hemoglobin 10.7 g/dl (12.0-16.0)
--- NOTE | 2024-09-25 07:40 | Hospitalist Progress Note ---
Date of Service September 25, 2024 Assessment & Plan (1) Encounter for assessment: Plan: Patient is POD 2 s/p pLTCS and doing well - Eating well, voiding well, ambulating well - vitals reviewed and within normal limits - pain well controlled with analgesics - OOB, ambulation, diet progression as tolerated - Blood type: A+, GBS neg, rubella immune - Plan to discharge tomorrow - After discharge, 6 week follow up with OBGYN Admission and Anticipated Discharge Date Admission Date: September 22, 2024 Supervising Physician Co-Signing Physician Notes Patient seen with resident and agree with the above findings and plan. Routine care Subjective 39 yo post- day 2 s/p primary lower transverse Ambulation: ambulating normally Voiding: no voiding problems Passing Gas:: Yes Diet Tolerance:: regular diet Lochia:: Small Feeding Type:: breast feeding Current Pain Level: 5/10 Resting comfortably this AM in NAD. Denies WILDER, CP, SOB, N/V/D, LE pain/swelling. Physical Exam Physical Exam: General: patient resting comfortably, NAD, non-toxic in appearance, answers ques tions appropriately. Skin: warm, dry, intact HEENT: NC/AT, anicteric sclera, conjunctiva without injection, moist mucus membranes. Heart: +S1/S2, regular, no m/r/g Lungs: equal air entry bilaterally, no rales/rhonchi/wheezes Abd: +BS, soft, NT/ND, uterine fundus firm at umbilicus, caesarean incision healing without erythema Ext: warm, no clubbing/cyanosis or edema, Aracelis's neg. Neuro: nonfocal, speech intact, no facial droop, moving all extremities. Results & Data Results & Data Vital Signs (Past 12 Hours) Vital Signs Temp Pulse Resp BP O2 Del Method 09/24/24 23:00 36.3 C L 88 18 104/68 Room Air 09/24/24 19:50 36.4 C L 102 H 16 109/75 Room Air Resident Activity Tracking Resident Involvement: Resident Care Provided Care Provided: Adult Hospital Medicine
[2024-09-25] MEDS: oxyCODONE HCL IR 5 MG TAB (IMMEDIATE RELEASE) PO PRN (14:26)
[2024-09-25] MEDS: SODIUM CHLORIDE 0.9% 500 ML IV SCH (19:24)
[2024-09-25] MEDS: ePHEDrine sulfate 50 MG/ML AMP ONE (19:24)
[2024-09-25] MEDS: MoRPHine SULFATE PF 1 MG/ML 10 ML AMP/VIAL EPI ONE (19:25)
[2024-09-25] MEDS: SODIUM CHLORIDE 0.9% 1,000 ML IV SCH ×3 (19:25→21:57)
[2024-09-25] MEDS: MAG SULFATE 50% 1GM/2ML 10ML VIAL ONE (19:26)
[2024-09-25] MEDS ORDERED: bisacodyL 10 MG SUPP PR PRN (23:27)
[2024-09-25] MEDS: IBUPROFEN 600 MG TAB PO PRN (23:46)
[2024-09-26 00:34] VITALS: RESP 18; O2SAT 97
[2024-09-26] MEDS: ACETAMINOPHEN 325 MG TAB PO PRN (06:18)
--- NOTE | 2024-09-26 07:09 | Obstetrical Progress Note ---
Date of Service September 26, 2024 Assessment & Plan (1) Encounter for assessment: Plan: Patient is POD 3 s/p pLTCS and doing well - Eating well, voiding well, ambulating well - vitals reviewed and within normal limits - pain well controlled with analgesics - OOB, ambulation, diet progression as tolerated - Blood type: A+, GBS neg, rubella immune - Plan to discharge today - After discharge, 6 week follow up with OBGYN Admission and Anticipated Discharge Date Admission Date: September 22, 2024 Supervising Physician Co-Signing Physician Notes Resident Physician Supervision Note: I interviewed and examined the patient. Discussed with Dr. Welch and agree with findings and plan as documented in the note. Any exceptions or clarifications are listed here: [None] Documented By: Sima Ma MD, FACOG Subjective 39 yo post- day 3 s/p primary lower transverse Ambulation: ambulating normally Voiding: no voiding problems Passing Gas:: Yes Diet Tolerance:: regular diet Lochia:: Small Feeding Type:: breast feeding Current Pain Level: 5/10 Resting comfortably this AM in NAD. Denies WILDER, CP, SOB, N/V/D, LE pain/swelling. Physical Exam Physical Exam: General: patient resting comfortably, NAD, non-toxic in appearance, answers questions appropriately. Skin: warm, dry, intact HEENT: NC/AT, anicteric sclera, conjunctiva without injection, moist mucus membranes. Heart: +S1/S2, regular, no m/r/g Lungs: equal air entry bilaterally, no rales/rhonchi/wheezes Abd: +BS, soft, NT/ND, uterine fundus firm at umbilicus, caesarean incision healing without erythema Ext: warm, no clubbing/cyanosis or edema, Aracelis's neg. Neuro: nonfocal, speech intact, no facial droop, moving all extremities. Results & Data Vital Signs (Past 12 Hours) Vital Signs Temp Pulse Resp BP Pulse Ox O2 Del Method 09/25/24 23:50 73 18 114/71 97 Room Air 09/25/24 20:45 36.6 C 86 16 117/69 96 Room Air Resident Activity Tracking Resident Involvement: Resident Care Provided Care Provided: OB Delivery
[2024-09-26 10:32] VITALS: BP 106/7; PULSE 92; TEMP 97.2
--- NOTE | 2024-09-29 15:01 | Discharge Summary ---
Date of Service September 29, 2024 Admission HPI Per Admitting Provider 39yo at 39+wks ega presents to LD for planned induction for insulin requiring GDM. No rom, no vb. +FM. No ctx. PNC c/b 1. GDM on insulin 2. AMA 3. Left renal agenesis, Recommend f/u US to evaluate 4. 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 Discharge Data Consultations 09/22/24 07:59 Consult Anesthesiology Stat Procedures Performed Operation Date: 09/23/24 22:00 Actual Procedures p Primary Section. Live male child born at 2247 - Leanne Alfaro MD, [facility] Course (1) delivery delivered: (2) Insulin controlled gestational diabetes mellitus (GDM) during : Plan Patient presented for IOL. Course prolonged. Eventually allowed pitocin and arom. Patient had ftp beyond 4-5cm despite pitocin of up to 30mu. Could not get into an adequate contraction pattern. Patient underwent a primarly low transverse c/s without complication. QBL of 501cc. POstop course uncomplicated. Tolerated a regular diet, ambulated without difficulty, pain controlled with oral pain meds, voided after removal of her dupree. d/c h/h was 10.7/31.8. Was d/c home on pod2 wiht f/u in 6 weeks in the office. Coding Level of Care Code None Diagnoses delivery delivered O82 Insulin controlled gestational diabetes mellitus (GDM) during O24.414
== END 2024-09-26 13:45 | disposition home or self-care (01) | DRG 788 ==
LOC: 4S1 07:49 → 4E2 09-24 02:23
DX: O24.424 Gestational diabetes mellitus in childbirth, insulin controlled; Z37.0 Single live birth; O61.0 Failed medical induction of labor; Z14.1 Cystic fibrosis carrier; O69.81X0 Labor and delivery complicated by cord around neck, without compression, not applicable or unspecified; O35.EXX0 Maternal care for other (suspected) fetal abnormality and damage, fetal genitourinary anomalies, not applicable or unspecified; Z3A.39 39 weeks gestation of pregnancy